=== PATIENT | female | born 1935 | race Caucasian/White ===

== ENCOUNTER → 2021-01-21 | Outpatient (CLI) | payer MEDICARE ==
[~2021-01-21] MED LIST: CRESTOR10 MG PO; FISH OIL 1,0001 EACH PO; FOLIC ACID 1 MG1 MG PO; HYDROCHLOROTH12.5 MG PO; ISOSORBIDE MONO60 MG PO; NEXIUM40 MG PO; PLAVIX 75 MG TA75 MG PO; VITAMIN B12-FO1 EACH PO; VITAMIN E400 UNI4 PO
[2021-01-21 12:58] LABS: HEMOGLOBIN 13.8 gm/dl (12.3-15.3); RED BLOOD COUNT 4.82 M/UL (4.00-5.10); WHITE BLOOD COUNT 6.7 K/UL (4.5-11.0)
[2021-01-21 13:18] LABS: BUN/CREATININE RATIO 14 (0-10)
== END ==
LOC: LAB 12:23
PROVIDERS: Internal Medicine Interventional Cardiology
DX: I20.8 Other forms of angina pectoris (principal)
CPT/HCPCS: 36415; 80048; 85025; 85610; 85730; 93005

== ENCOUNTER 2021-01-25 06:53 | Outpatient (CLI) | payer MEDICARE ==
[~2021-01-25] VITALS: Ht 160 cm; Wt 72.6 kg
[2021-01-25] MEDS ORDERED: FOLIC ACID 1 MG1 MG PO (07:19)
[2021-01-25] MEDS ORDERED: VITAMIN B12-FO1 EACH PO (07:20)
[2021-01-25] MEDS ORDERED: HYDROCHLOROTH12.5 MG PO (07:20)
[2021-01-25] MEDS ORDERED: NEXIUM40 MG PO (07:21)
[2021-01-25] MEDS ORDERED: ISOSORBIDE MONO60 MG PO (07:21)
[2021-01-25] MEDS ORDERED: VITAMIN E400 UNI4 PO (07:23)
[2021-01-25] MEDS ORDERED: CRESTOR10 MG PO (07:24)
[2021-01-25] MEDS ORDERED: FISH OIL 1,0001 EACH PO (07:25)
[2021-01-25 19:24] LABS: HEMOGLOBIN 12.5 gm/dl (12.3-15.3); RED BLOOD COUNT 4.45 M/UL (4.00-5.10)
[2021-01-25 19:51] LABS: BUN/CREATININE RATIO 11 (0-10)
[2021-01-26 02:30] LABS: HEMOGLOBIN 12.5 gm/dl (12.3-15.3); RED BLOOD COUNT 4.46 M/UL (4.00-5.10); WHITE BLOOD COUNT 8.8 K/UL (4.5-11.0)
[2021-01-26 02:46] LABS: BUN/CREATININE RATIO 13 (0-10)
[2021-01-26] MEDS ORDERED: PLAVIX 75 MG TA75 MG PO (09:49)
== END 2021-01-26 11:19 | disposition home or self-care (01) ==
LOC: CATH 06:53 → PROG CARE 16:03 → CATH 01-26 11:19
PROVIDERS: Internal Medicine Interventional Cardiology
DX: I25.118 Atherosclerotic heart disease of native coronary artery with other forms of angina pectoris (principal); I10 Essential (primary) hypertension; E78.5 Hyperlipidemia, unspecified; Z95.5 Presence of coronary angioplasty implant and graft; Z88.5 Allergy status to narcotic agent; Z88.2 Allergy status to sulfonamides; Z88.1 Allergy status to other antibiotic agents; Z79.899 Other long term (current) drug therapy
CPT/HCPCS: 36415; 80048; 85027; 85347; 93005; 99152; 99153; C1725; C1769; C1874; C1887; C9600; J0360; J0461; J1644; J2250; J3010; J7030; J7040; Q9965